=== PATIENT | female | born 1940 | race Caucasian/White ===

== ENCOUNTER 2023-10-29 18:23 | Emergency (ER) | payer OTHER ==
[~2023-10-29] VITALS: Ht 170.2 cm; Wt 72.6 kg
[2023-10-29 18:41] VITALS: BP 151/76; PULSE 98; RESP 18; TEMP 97.8; O2SAT 97
[2023-10-29 21:01] VITALS: O2SAT 97
[2023-10-29 21:09] VITALS: BP 133/65; PULSE 95; TEMP 98; O2SAT 97
[2023-10-29] MEDS: KETOROLAC 60 MG/2 ML VIAL IM ONE (21:42)
[2023-10-29] MEDS ORDERED: ACET-8905 PO (21:53)
[2023-10-29] MEDS ORDERED: IBUP-2213 PO (21:53)
== END 2023-10-29 22:02 | disposition home or self-care (01) ==
LOC: MED 18:23
DX: M25.511 Pain in right shoulder (principal); I10 Essential (primary) hypertension; Z79.899 Other long term (current) drug therapy
CPT/HCPCS: 96372; 99283; J1885

== ENCOUNTER 2023-11-12 18:43 | Inpatient (IN) | payer OTHER ==
[~2023-11-12] VITALS: Ht 170.2 cm; Wt 73.5 kg
[~2023-11-12 18:43] MED LIST: ACET-8905 PO; IBUP-2213 PO
[2023-11-12 18:59] VITALS: BP 134/62; PULSE 97; RESP 19; TEMP 98.9; O2SAT 99
[2023-11-12 19:56] LABS: APPEARANCE,URINE CLEAR (CLEAR); BILIRUBIN,URINE NEGATIVE (NEGATIVE); BLOOD, URINE NEGATIVE (NEGATIVE); COLOR,URINE YELLOW (YELLOW); LEUKOCYTE ESTERASE ,URINE NEGATIVE (NEGATIVE); NITRITE, URINE NEGATIVE (NEGATIVE); PROTEIN,URINE NEGATIVE (NEGATIVE); UGLUCOSE NEGATIVE (NEGATIVE); UROBILINOGEN,URINE 0.2 EU/dL (0.2 - 1)
[2023-11-12 20:26] LABS: BASOPHILS # (AUTO) 0.1 K/uL (0.00-0.22); BASOPHILS % (AUTO) 0.8 % (0.0-2.0); EOSINOPHILS # (AUTO) 0.2 K/uL (0-0.4); EOSINOPHILS % (AUTO) 1.8 % (0.0-4.0); HEMATOCRIT 37.1 % (36-48); HEMOGLOBIN 12.8 g/dL (12.0-16.0); LYMPHOCYTES # (AUTO) 2.9 K/uL (2.5-16.5); LYMPHOCYTES % (AUTO) 33.9 % (20.5-51.1); MEAN CORPUSCULAR HEMOGLOBIN 32 pg (27-31); MEAN CORPUSCULAR HGB CONC 35 g/dL (33-37); MEAN CORPUSCULAR VOLUME 92.1 fL (80-94); MONOCYTES # (AUTO) 0.8 K/uL (0.8-1.0); MONOCYTES % (AUTO) 9.1 % (1.7-9.3); NEUTROPHILS # (AUTO) 4.7 K/uL (1.8-7.7); NEUTROPHILS % (AUTO) 54.4 % (42.2-75.2); PLATELET COUNT (AUTO) 270 K/uL (140-450); RED BLOOD CELL COUNT(AUTO) 4.03 MIL/uL (4.20-5.40); RED CELL DISTRIBUTION WIDTH 13.2 % (11.6-13.7); WHITE BLOOD COUNT (AUTO) 8.7 K/uL (4.8-10.8)
[2023-11-12 20:45] LABS: ALANINE AMINOTRANSFERASE 22 U/L (12-78); ALBUMIN 3.5 g/dL (3.4-5.0); ALKALINE PHOSPHATASE 89 U/L (50-136); ASPARTATE AMINOTRANSFERASE 19 U/L (15-37); BILIRUBIN,DIRECT 0.1 mg/dL (0.0-0.3); TOTAL BILIRUBIN 0.5 mg/dL (0.0-1.0); TOTAL PROTEIN, SERUM 6.7 g/dL (6.4-8.2)
[2023-11-12] MEDS ORDERED: MULT-2253 PO (22:27)
[2023-11-12] MEDS ORDERED: ASPI-1822 PO (22:27)
[2023-11-12] MEDS: ASPIRIN 325 MG TAB PO ONE (22:38)
[2023-11-12] MEDS ORDERED: ACETAMINOPHEN 325 MG TAB PO PRN (23:25)
[2023-11-12] MEDS ORDERED: HYDROcodone/APAP 5/325 MG 1 TAB TAB PO PRN (23:25)
[2023-11-12] MEDS ORDERED: ONDANSETRON 4 MG/2 ML VIAL IVP PRN (23:25)
[2023-11-12] MEDS: NACL 0.9% 1,000 ML IV SCH (23:50)
[2023-11-13] VITALS (11 sets, daily range): BP systolic 120–147; BP diastolic 67–115; PULSE 80–100; RESP 17–26; TEMP 96.2–97.9; O2SAT 97–99
[2023-11-13] MEDS: ALBUTEROL 0.083% 2.5 MG/3 ML NEBU INH PRN (01:32)
[2023-11-13] MEDS: ASPIRIN 81 MG TAB.CHEW PO SCH (08:45)
[2023-11-13] MEDS: METOPROLOL 25 MG TAB PO SCH (20:13)
[2023-11-13] MEDS: MELATONIN 3 MG TAB PO SCH (20:13)
[2023-11-13] MEDS: APIXABAN 2.5 MG TAB PO SCH (20:14)
[2023-11-14] VITALS (9 sets, daily range): BP systolic 128–151; BP diastolic 53–82; PULSE 60–79; RESP 16–20; TEMP 97–98.4; O2SAT 97–99
[2023-11-14 06:46] LABS: BASOPHILS % (AUTO) 0.4 % (0.0-2.0); EOSINOPHILS # (AUTO) 0.4 K/uL (0-0.4); EOSINOPHILS % (AUTO) 5.3 % (0.0-4.0); HEMATOCRIT 39.2 % (36-48); HEMOGLOBIN 13.4 g/dL (12.0-16.0); LYMPHOCYTES # (AUTO) 2.3 K/uL (2.5-16.5); LYMPHOCYTES % (AUTO) 33.2 % (20.5-51.1); MEAN CORPUSCULAR HEMOGLOBIN 32 pg (27-31); MEAN CORPUSCULAR HGB CONC 34 g/dL (33-37); MEAN CORPUSCULAR VOLUME 93.1 fL (80-94); MONOCYTES # (AUTO) 0.6 K/uL (0.8-1.0); MONOCYTES % (AUTO) 8.3 % (1.7-9.3); NEUTROPHILS # (AUTO) 3.7 K/uL (1.8-7.7); NEUTROPHILS % (AUTO) 52.8 % (42.2-75.2); PLATELET COUNT (AUTO) 248 K/uL (140-450); RED BLOOD CELL COUNT(AUTO) 4.21 MIL/uL (4.20-5.40); RED CELL DISTRIBUTION WIDTH 13.4 % (11.6-13.7)
[2023-11-14 07:01] LABS: ANION GAP 9.4 (8-16); CALCIUM 8.8 mg/dL (8.5-10.1); CARBON DIOXIDE 29.6 mmol/L (21-32); CHLORIDE 102 mmol/L (98-107); CREATININE 0.8 mg/dL (0.6-1.3); GLUCOSE 88 mg/dL (74-106); SODIUM SERUM 137 mmol/L (136-145); UREA NITROGEN, BLOOD 11 mg/dL (7-18)
[2023-11-14] MEDS ORDERED: APIX5TAB PO (09:29)
[2023-11-14] MEDS ORDERED: METO25TA PO ×2 (09:29→12:39)
[2023-11-14] MEDS ORDERED: METOPROLOL 50 MG TAB PO SCH (21:00)
== END 2023-11-14 13:35 | disposition home health service (06) | DRG 309 ==
LOC: MED 18:43 → MTU 23:21
PROVIDERS: ADMIT Student in an Organized Health Care Education/Training Program; ATTEND Student in an Organized Health Care Education/Training Program
DX: I48.91 Unspecified atrial fibrillation (principal); R65.10 Systemic inflammatory response syndrome (SIRS) of non-infectious origin without acute organ dysfunction; I10 Essential (primary) hypertension; Z79.899 Other long term (current) drug therapy
CPT/HCPCS: 36415; 70450; 71045; 80048; 80076; 81003; 83036; 83735; 83880; 84443; 84484; 85025; 87081; 93005; 93880; 94640; 97116; 97163-GP; 99285; J7613; Q0092